=== PATIENT | male | born 1965 | race Caucasian/White ===

== ENCOUNTER → 2025-03-08 07:22 | Outpatient (REF) | payer BC, SELFPAY | LOC: HWRAD 07:22 | PROVIDERS: ATTENDING PHYSICIAN Family Medicine | DX: R10.9 Unspecified abdominal pain (principal) | CPT/HCPCS: 76700 ==

== ENCOUNTER 2025-03-30 06:12 | Day surgery (SDC) | payer BC, SELFPAY ==
[2025-03-30 07:58] LABS: Glucose - Point of Care 104 mg/dl (70-99)
== END 2025-03-30 09:26 | disposition home or self-care (01) ==
LOC: GI 06:12
PROVIDERS: ATTENDING PHYSICIAN Internal Medicine Gastroenterology
DX: R12 Heartburn (principal); K31.89 Other diseases of stomach and duodenum
CPT/HCPCS: 43239; 82962; 88305; 88342

== ENCOUNTER 2025-04-29 09:14 | Emergency (ER) | payer OTHER, SELFPAY ==
[2025-04-29 09:22] VITALS: BP 110/73
[2025-04-29 09:48] LABS: Hematocrit 43.9 % (39.0-52.0); Hemoglobin 15.4 g/dL (13.0-18.0); Mean Corp Hgb Conc. 35.1 g/dL (33.0-37.0); Mean Corpuscular Volume 87.5 fL (80.0-94.0); Nucleated Red Blood Cells % 0 % (-); Platelet Count 352 10^3/uL (130-400); Red Cell Dist. Width 12.2 % (11.5-14.5)
[2025-04-29 10:21] LABS: ALT (SGPT) 25 U/L (0-50); AST (SGOT) 26 U/L (17-59); Albumin 4.8 g/dl (3.5-5.0); Alkaline Phosphatase 38 U/L (38-126); Blood Urea Nitrogen 21 mg/dl (9-20); Calcium 9.6 mg/dl (8.4-10.2); Carbon Dioxide 24 mmol/L (22-30); Chloride 100 mmol/L (98-107); Glucose 133 mg/dl (70-99); Potassium 4.4 mmol/L (3.5-5.1); Sodium 134 mmol/L (135-145); Total Protein 8.2 g/dl (6.3-8.2); eGFR > 60.00
[2025-04-29 11:43] LABS: Urine Character Clear (Clear)
--- NOTE | 2025-04-29 13:00 | ED.GENMED ---
History of Present Illness
General
Chief Complaint: Male Genito-Urinary Symptoms
Time Seen by Provider: 04/29/25 12:58
History of Present Illness
History of Present Illness:
60-year-old male with history of diabetes presenting for hematuria. Patient reports for the past few days he has noticed some blood in his urine, very dark in color. Yesterday noticed some small clots. Denies ever having this in the past. Denies
any associated pain. Notes some mild discomfort with urination. Denies any history of kidney stones. He is not on any blood thinners. Denies any present abdominal pain, fever, chest pain, difficulty breathing. Denies additional acute medical
complaints
Past History
Past History
ED Past Medical History: NIDDM, Hypothyroidism and Psychiatric
ED Past Surgical History: None
Social History
Tobacco: Non-smoker
Alcohol: None
Drug: None
Personal:
Living: with family
Phy Exam
Physical Exam
Physical Exam:
General: Well-appearing, no clinical signs of dehydration, nontoxic and in no acute distress
HEENT: protecting airway
Neck: appears supple
CV: Normal heart rate
Resp: No accessory muscle use, no increased work of breathing
Abd: Soft and non-distended, no tenderness to palpation
Extremities: No deformities, no swelling
Neuro: alert, no focal neurologic deficit
: deferred
Rectal: deferred
Psych: Normal affect
Skin: Intact
Course
Orders/Labs/Results
Orders:
Orders
04/29/25 09:34
Complete Blood Count/With Diff Urgent
Comprehensive Metabolic Panel Urgent
04/29/25 10:48
Urinalysis Reflex To Culture Urgent
Date Specimen was Collected: 04/29/25
Time Specimen was Collected: 09:30
Urine Microscopic Reflex Cult Urgent
04/29/25 13:15
Kidney & Bladder US [US Renal With Bladder] Urgent
Comment:
Reason For Exam: painless hematuria
Abnormal Lab Results
04/29/25 04/29/25
09:34 10:48
Absolute Lymphs (auto) 4.1 H 10^3/uL
(1.2-3.4)
Absolute Monos (auto) 0.8 H 10^3/uL
(0.1-0.6)
Neutrophils % 36.3 L %
(42.2-75.2)
Monocytes % 9.4 H %
(1.7-9.3)
Sodium 134 L mmol/L
(135-145)
BUN 21 H mg/dl
(9-20)
Glucose 133 H mg/dl
(70-99)
Ur Occult Blood Reflex 4+ A
(Negative)
Urine RBC 50-60 A /HPF
(0-2)
Urine Albumin (Reflex) 1+ A
(Neg - Trace)
04/29/25 09:34
04/29/25 09:34
Vital Signs
Initial and Last Documented VS:
Initial Vital Signs
Temp Pulse Resp BP Pulse Ox
98.3 F 84 20 110/73 99
04/29/25 09:22 04/29/25 09:22 04/29/25 09:22 04/29/25 09:22 04/29/25 09:22
Last Documented Vital Signs
Temp Pulse Resp BP Pulse Ox
98.3 F 75 16 109/71 100
04/29/25 09:22 04/29/25 16:13 04/29/25 14:00 04/29/25 16:11 04/29/25 16:30
MDM/Problems Addressed
MDM/Problems Addressed:
60-year-old male with history of diabetes presenting with hematuria for the past few days. Vital signs are normal.
On exam patient resting comfortably, no acute distress. Unremarkable examination. No hemodynamic instability. No tenderness to the abdomen. Unclear etiology of patient's hematuria. No present concern for a kidney stone in the absence of any
abdominal pain or flank pain. Patient is not on any blood thinners, with lower suspicion for medication reaction. Patient does note some discomfort with urination, so UTI is a consideration. Urine however without significant signs of infection.
Labs obtained prior to my assessment, normal renal function as well as hemoglobin. Plan for bladder and kidney ultrasound for further assessment.
17:00 - Patient's labs again are unremarkable. Bladder and renal ultrasound is unremarkable. Unclear etiology of patient's hematuria, however no significant bleeding concerns at this time. No significant signs of infection to the urine, however
given unprovoked symptoms, will trial course of antibiotics with outpatient urology follow-up. Strict return precautions communicated to patient verbalized understanding
*Pulse Oximetry
SaO2: 99
Oxygen Mode of Delivery: Room air
Patient hypoxic: no
*Critical Care Note
Total Time (30-74mins, 75-104mins- exclusive of procedures): Not Applicable
ED Attending Note
-
Portions of this chart may have been created with voice recognition software.� Occasional wrong word or��sound alike� substitutions may have occurred due to the inherent limitations of voice recognition software.
Discharge Plan
Departure
Prescriptions:
No Action
ondansetron 4 mg Tablet,Disintegrating
4 mg PO TIDPRN PRN (Reason: nausea/vomiting) Qty: 10 0RF
omeprazole 40 mg capsule,delayed release(DR/EC)
40 mg PO QPM
levothyroxine 125 mcg tablet
125 mcg PO DAILY
sertraline 50 mg tablet
50 mg PO DAILY
Januvia 100 mg tablet
100 mg PO DAILY
loperamide 2 mg Capsule
2 mg PO Q4HPRN PRN (Reason: diarrhea) Qty: 30 0RF
amoxicillin-pot clavulanate 875-125 mg tablet
1 tab PO Q12H 5 Days Qty: 10 0RF
Rx Instructions:
next dose 08/22 AM
Referrals:
Melina Carney, [Family Provider]
Interventions
Interventions:
*General Assessment Last Done: 04/29/25 13:28
*Neglect/Abuse Screening Last Done: 04/29/25 13:28
*ED COVID-19 Vaccine History Last Done: 04/29/25 13:28
*ED Influenza Vaccine History Last Done: 04/29/25 13:28
[facility] Fall Risk Assessment Tool Last Done: 04/29/25 13:28
*Risk Screen - Suicide (C-SSRS) Last Done: 04/29/25 13:28
ED-Male Genitourinary Assessment Last Done: 04/29/25 13:28
Discharge Date and Time
Print Language: CITIZEN OF [place]
--- NOTE | 2025-04-29 13:07 | EDRN ---
Dr. Quevedo in room w/ pt at this time.
[2025-04-29 13:28] VITALS: BMI 21.8
[2025-04-29 13:28] LABS: Urine Red Blood Cell 50-60 /HPF (0-2); Urine Squamous Cell 0-2 /LPF (Few); Urine White Cell 0-2 /HPF (0-5)
[2025-04-29 13:30] VITALS: BP 118/74
[2025-04-29 14:00] VITALS: BP 112/73
[2025-04-29 16:11] VITALS: BP 109/71
[2025-04-29] MEDS: KEFLEX 500 MG PO (17:52)
== END 2025-04-29 17:54 | disposition home or self-care (01) ==
LOC: EMR 09:14
PROVIDERS: Emergency Medicine; EMERGENCY PHYSICIAN Student in an Organized Health Care Education/Training Program; FAMILY PHYSICIAN Family Medicine
DX: R31.9 Hematuria, unspecified (principal); E11.9 Type 2 diabetes mellitus without complications; E03.9 Hypothyroidism, unspecified; Z79.84 Long term (current) use of oral hypoglycemic drugs
CPT/HCPCS: 99284; 76770; 80053; 81003; 81015; 85025